=== PATIENT | female | born 1995 ===

== ENCOUNTER 2021-11-04 06:00 | Inpatient (IN) | payer OTHER ==
[2021-11-04] MEDS ORDERED: AMPICILLIN/NS 2 GM/100 ML 2 GM/100 ML BAG IV ONE ×2 (07:07→07:12)
[2021-11-04] MEDS ORDERED: LOPERAMIDE 2 MG CAP PO PRN (07:12)
[2021-11-04] MEDS ORDERED: METHYLERGONOVINE MALEATE 0.2 MG/ML VIAL IM PRN (07:12)
[2021-11-04] MEDS ORDERED: LIDOCAINE (2%) 20 MG/1 ML VIAL 20 ML MDV INFILTRATI NR (07:12)
[2021-11-04] MEDS ORDERED: TERBUTALINE 1 MG/1 ML INJ SUB-Q PRN (07:12)
[2021-11-04] MEDS ORDERED: OXYTOCIN 10 UNIT/1 ML INJ IM PRN (07:12)
[2021-11-04] MEDS ORDERED: CARBOPROST TROMETHAMINE 250 MCG/1 ML INJ IM PRN (07:12)
[2021-11-04] MEDS ORDERED: ePHEDrine SULFATE 50 MG/1 ML INJ IV PRN (07:12)
[2021-11-04] MEDS ORDERED: miSOPROStol 200 MCG TAB PR PRN (07:12)
[2021-11-04] MEDS ORDERED: BUTORPHANOL 2 MG/1 ML INJ IV PRN (07:30)
[2021-11-04] MEDS ORDERED: fentaNYL 100 MCG/2 ML INJ IV PRN (07:30)
[2021-11-04] MEDS ORDERED: ACETAMINOPHEN 325 MG TAB PO PRN (07:30)
[2021-11-04 07:32] LABS: Hematocrit 37.6 % (30.3-42.9); Hemoglobin 11.9 gm/dl (10.1-14.3); Mean Corpuscular HGB Conc 32 % (30-34); Mean Corpuscular Volume 76 fl (79-97); Platelet Count 223 K/mm3 (140-440); Red Blood Count 4.95 M/mm3 (3.65-5.03); Red Cell Distribution Width 16.7 % (13.2-15.2)
[2021-11-04] MEDS ORDERED: OXYTOCIN DRIP 30 UNITS/500 ML BAG IV SCH ×2 (08:00)
[2021-11-04] MEDS ORDERED: LACTATED RINGERS 1,000 ML IV SCH (08:00)
[2021-11-04] MEDS ORDERED: MINERAL OIL 30 ML ORAL LIQD ONE (08:30)
--- NOTE | 2021-11-04 10:17 | History and Physical Report ---
History of Present Illness Date of examination: 11/04/21 Date of admission: 11/04/21 07:12 Chief complaint: I am in labor. History of present illness: Patient is a 26-year-old 1 para 0 who presents with active contractions at 40 weeks gestation. Patient denies any complications with her . She has been receiving regular care at [facility] since May,. All of her labs have been negative. course was complicated by late pre sentation to care at 15 weeks. Patient is also GBS positive. She is also HSV-2 positive. Patient presented to triage and quickly progressed to 8 cm. Past History Past Medical History: no pertinent history Past Surgical History: no surgical history Family/Genetic History: none Social history: single - Obstetrical History Expected Date of Delivery: 11/04/21 Actual Gestation: 40 Week(s) 0 Day(s) : 1 Para: 0 Number of Living Children: 0 Medications and Allergies Allergies Allergy/AdvReac Type Severity Reaction Status Date / Time No Known Allergies Allergy Unverified 11/04/21 07:11 Active Meds: Active Medications Acetaminophen (Acetaminophen 325 Mg Tab) 650 mg PO Q4H PRN PRN Reason: Pain, Mild (1-3) Butorphanol Tartrate (Butorphanol 2 Mg/1 Ml Inj) 1 mg IV Q2H PRN PRN Reason: Pain, Moderate(4-6) LABOR PAIN Carboprost Tromethamine (Carboprost Tromethamine 250 Mcg/1 Ml Inj) 250 mcg IM ONCE PRN PRN Reason: Uterine Bleeding Ephedrine Sulfate (Ephedrine Sulfate 50 Mg/1 Ml Inj) 10 mg IV Q2M PRN PRN Reason: Hypotension Fentanyl (Fentanyl 100 Mcg/2 Ml Inj) 100 mcg IV Q2H PRN PRN Reason: Pain,Severe (7-10) LABOR PAIN Last Admin: 11/04/21 07:38 Dose: 100 mcg Oxytocin/Sodium Chloride (Pitocin/Ns 30 Unit/500ml) 30 units in 500 mls @ 2 mls/hr IV TITR JERRY; Protocol Lactated Ringer's (Lactated Ringers) 1,000 mls @ 125 mls/hr IV DIRECT JERRY Last Admin: 11/04/21 07:39 Dose: 125 mls/hr Oxytocin/Sodium Chloride (Pitocin/Ns 30 Unit/500ml) 30 units in 500 mls @ 40 mls/hr IV TITR JERRY; Protocol Lidocaine (Lidocaine (2%) 20 Mg/1 Ml Vial 20 Ml Mdv) 20 ml INFILTRATI ONCE NR Stop: 11/04/21 11:00 Loperamide HCl (Loperamide 2 Mg Cap) 2 mg PO ONCE PRN PRN Reason: give with Hemabate Methylergonovine Maleate (Methylergonovine Maleate 0.2 Mg/Ml Vial) 0.2 mg IM ONCE PRN PRN Reason: Uterine Bleeding Mineral Oil (Mineral Oil 30 Ml Oral Liqd) 30 ml PO QHS PRN PRN Reason: Constipation Misoprostol (Misoprostol 200 Mcg Tab) 800 mcg NV ONCE PRN PRN Reason: Uterine Bleeding Oxytocin (Oxytocin 10 Unit/1 Ml Inj) 10 unit IM ONCE PRN PRN Reason: Uterine Bleeding Terbutaline Sulfate (Terbutaline 1 Mg/1 Ml Inj) 0.25 mg SUB-Q ONCE PRN PRN Reason: Hyperstimulation/Hypertonicity Review of Systems All systems: negative Constitutional: weight gain Gastrointestinal: abdominal pain Genitourinary: pelvic pain, contractions - Vital Signs Vital signs: Vital Signs Pulse Pulse Ox 122 H 89 11/04/21 06:04 11/04/21 06:04 Temp Pulse Resp BP Pulse Ox 97.1 F L 90 137/74 87 11/04/21 06:14 11/04/21 09:53 11/04/21 09:53 11/04/21 06:55 - Physical Exam Breasts: Cardiovascular: Regular rate, Normal S1, Normal S2 Lungs: Positive: Clear to auscultation, Normal air movement Abdomen: Positive: normal appearance, soft, normal bowel sounds. Negative: distention, tenderness Genitourinary (Female): Positive: normal external genitalia, normal perenium Vulva: both: normal Vagina: Positive: normal moisture. Negative: discharge Cervix: Negative: lesion, discharge Uterus: Positive: normal size, normal contour Adnexa: both: normal Anus/Rectum: Positive: normal perianal skin, heme negative. Negative: rectal mass, hemorrhoids Extremities: Deep Tendon Reflex Grade: Normal +2 - Obstetrical FHR: auscultation normal Cervical Dilatation: 8 Cervical Effacement Percentage: 90 station: -1 Uterine Contraction Pattern: Regular Uterine Tone Measurement Phase: Contraction Uterine Contraction Intensity: Moderate Results Result Diagrams: 11/04/21 07:00 Abnormal lab results 11/04/21 Range/Units 07:00 MCV 76 L (79-97) fl MCH 24 L (28-32) pg RDW 16.7 H (13.2-15.2) % All other labs normal. Assessment and Plan IUP at 40 weeks today here in active labor. Admit to L&D. we will try to treat for GBS status as delivery appears to be imminent. Anticipate
--- NOTE | 2021-11-04 10:33 | Procedure Note ---
OB Delivery Note - Delivery Date of Delivery: 11/04/21 Surgeon: LU HERNANDEZ Estimated blood loss: 200cc - Vaginal Delivery presentation: vertex Intrapartum events: precipitous labor- <3hr Delivery induction: none Delivery monitor: external FHT, external uterine Route of delivery: Delivery placenta: spontaneous Delivery cord: 3 umbilical vessels Episiotomy: none Delivery laceration: 1st degree Delivery repair: vicryl Anesthesia: local Delivery comments: Viable female delivered over intact perineum. Infant had spontaneous cry and was placed on maternal abdomen. Cord was clamped and cut when finished pulsating. Weight 7 pounds 0 ounces. Apgars 8/9. Placenta was delivered spontaneously and intact with three-vessel cord. Patient had a laceration that was repaired with 2-0 Vicryl. Excellent hemostasis. Patient tolerated procedure well. - Infant A at 1 minute: 8 at 5 minutes: 9 Infant Gender: Female
[2021-11-04] MEDS ORDERED: PROMETHAZINE 25 MG TAB PO PRN (13:17)
[2021-11-04] MEDS ORDERED: ONDANSETRON 4 MG/2 ML INJ IV PRN (13:17)
[2021-11-04] MEDS ORDERED: PROMETHAZINE 25 MG RECT SUPP PR PRN (13:17)
[2021-11-04] MEDS ORDERED: LANOLIN/ZINC/DIMETHICONE (LANSINOH) 7 GM TP PRN (14:00)
[2021-11-04] MEDS ORDERED: WITCH HAZEL/ GLYCERIN PAD TP PRN (14:00)
[2021-11-04] MEDS ORDERED: diphenhydrAMINE 25 MG CAP PO PRN (14:00)
[2021-11-04] MEDS: IBUPROFEN 600 MG TAB PO SCH ×2 (15:01→21:08)
[2021-11-04] MEDS: DOCUSATE SODIUM 100 MG CAP PO SCH ×2 (15:02→21:09)
[2021-11-04] MEDS: PRENATAL VIT27-FE FUMARATE-FOLIC ACID VIT TAB PO SCH (15:03)
[2021-11-04 21:48] LABS: Hemoglobin 10.2 gm/dl (10.1-14.3)
[2021-11-04] MEDS ORDERED: MINERAL OIL 30 ML ORAL LIQD PO PRN (22:00)
[2021-11-04] MEDS ORDERED: MAGNESIUM HYDROXIDE (MOM) ORAL LIQD UDC PO PRN (22:00)
[2021-11-05] MEDS: IBUPROFEN 600 MG TAB PO SCH ×3 (04:56→18:34)
--- NOTE | 2021-11-05 08:34 | Progress Note ---
Assessment and Plan A: PPD#1 s/p at term P: Routine care Discharge home per pt request Subjective - Subjective Date of service: 11/05/21 Principal diagnosis: s/p at term Interval history: No overnight events. Patient would like to go home if possible. Pt concerned about the way the baby's eyes appear, and whether or not that is normal. Patient reports: appetite normal, voiding normally, pain well controlled, ambulating normally : doing well Objective - Vital Signs Latest vital signs: Vital Signs Temp Pulse Resp BP BP Pulse Ox Pulse Ox 11/05/21 05:20 98 11/05/21 03:25 98 11/05/21 02:20 98 11/05/21 00:24 98.2 F 78 20 114/60 99 11/05/21 00:17 98 11/04/21 22:00 98 11/04/21 20:05 98 11/04/21 17:00 97.8 F 99 H 20 127/70 99 11/04/21 15:01 20 11/04/21 11:30 98.3 F 69 20 135/74 99 100 11/04/21 09:53 90 137/74 11/04/21 09:38 97 H 145/80 11/04/21 09:23 87 141/77 11/04/21 09:08 94 H 142/76 11/04/21 08:53 99 H 139/77 Intake and Output 11/04/21 11/05/21 11/05/21 22:59 06:59 14:59 Intake Total 720 120 Balance 720 120 Intake: Oral 720 120 Other: Total, Intake Amount 120 120 # Voids Void 1 - Exam Breasts: Present: deferred Abdomen: Present: soft Uterus: Present: fundal height at umbilicus Extremities: Present: normal
--- NOTE | 2021-11-05 08:35 | Discharge Summary ---
Providers - Providers Date of Admission: 11/04/21 07:12 Date of discharge: 11/05/21 Attending physician: LARRY CARLTON Primary care physician: LARRY CARLTON Hospitalization Reason for admission: active labor Delivery: Procedure details: Please see delivery note Episiotomy: none Laceration: 1st degree Other procedures: none complications: none Discharge diagnosis: IUP at term delivered [place] baby: female Hospital course: This patient was admitted in active labor and went on to have a spontaneous vaginal delivery which she tolerated well. The remainder of her course was uncomplicated and she met discharge criteria on day #1. She will follow-up in the office in 4 weeks with Anais Veronica NP Condition at discharge: Stable Disposition: 01 HOME / SELF CARE / HOMELESS - Discharge Diagnoses (1) Active labor at term Status: Acute (2) Term of female Status: Acute Plan - Discharge Medications Prescriptions: Ibuprofen [Motrin] 600 mg PO Q6H PRN #30 tablet PRN Reason: Pain - Provider Discharge Summary Activity: routine, no sex for 6 weeks, no heavy lifting 4 weeks, no strenuous exercise Diet: routine Instructions: routine Additional instructions: [] Smoking cessation referral if applicable(refer to patient education folder for contact #) [] Refer to [facility] Booklet Call your doctor immediately for: * Fever > 100.5 * Heavy vaginal bleeding ( >1 pad per hour) * Severe persistent headache * Shortness of breath * Reddened, hot, painful area to leg or breast * Drainage or odor from incision. * Keep incision clean and dry at all times and follow doctor's instructions regarding bathing/showering - Follow up plan Follow up: FOREST VERONICA NP [Advanced Practice Nurse] - 6 Weeks (Please call to schedule appt )
[2021-11-05] MEDS: PRENATAL VIT27-FE FUMARATE-FOLIC ACID VIT TAB PO SCH (10:12)
[2021-11-05] MEDS: DOCUSATE SODIUM 100 MG CAP PO SCH (10:12)
[2021-11-05 16:44] VITALS: BP 129/70
== END 2021-11-05 18:45 | disposition home or self-care (01) | DRG 775 ==
LOC: TRG 06:00 → APU 06:01 → TRG 07:12 → LD 07:12 → OB 10:45
PROVIDERS: ADMIT Obstetrics & Gynecology; ATTEND Obstetrics & Gynecology
PROC: 10E0XZZ Delivery of Products of Conception, External Approach (ICD-10-PCS; principal; 2021-11-04)
PROC: 0HQ9XZZ Repair Perineum Skin, External Approach (ICD-10-PCS; 2021-11-04)
DX: O62.3 Precipitate labor (principal); O70.0 First degree perineal laceration during delivery; Z3A.40 40 weeks gestation of pregnancy; Z37.0 Single live birth; Z20.822 Contact with and (suspected) exposure to COVID-19
CPT/HCPCS: 36415; 85014; 85018; 85027; 86592; 86850; 86900; 86901; G0378; J0290; J3010; J7120; U0003